=== PATIENT | female | born 1995 | race Caucasian/White ===

== ENCOUNTER 2018-09-06 22:47 | Emergency (ER) | END 2018-09-07 01:02 | disposition home or self-care (01) ==

== ENCOUNTER 2019-02-23 23:44 | Emergency (ER) | payer OTHER ==
[~2019-02-23] VITALS: Ht 160 cm; Wt 49.3 kg
[~2019-02-23 23:44] MED LIST: CITA20TA11 PO
[2019-02-24 00:06] VITALS: BP 114/59; PULSE 75; RESP 18; Ht 160 cm; Wt 49.3 kg
--- NOTE | 2019-02-24 07:01 | ERD ---
ER Documentation Chief Complaint Chief Complaint laceration left hand while cutting avocado with knife x 2 hours ago HPI 23-year-old female, presents to the emergency department, complaining of a laceration in the left hand while cutting an avocado 2 hours prior to arrival. The patient denies distal weakness, numbness or tingling. ROS All systems reviewed and are negative except as per history of present illness. Medications Home Meds Active Scripts Ibuprofen* (Motrin*) 600 Mg Tab, 600 MG PO Q6H PRN for PAIN AND OR ELEVATED TEMP, #12 TAB Prov:RASHAD RYAN MD 02/24/19 Cephalexin* (Keflex*) 500 Mg Capsule, 500 MG PO BID for 5 Days, CAP Prov:RASHAD RYAN MD 02/24/19 Citalopram Hydrobromide* (Celexa*) 20 Mg Tablet, 20 MG PO HS, #30 TAB 0 Refills Prov:SUNGAVELINO 09/07/18 Allergies Allergies: Coded Allergies: No Known Allergy (Unverified , 09/06/18) PMhx/Soc Medical and Surgical Hx: pt denies Surgical Hx Hx Psychiatric Problems: Yes (anxiety,panic attacks) Hx Miscellaneous Medical Probl: Yes (celiac disease, gastroparesis) Hx Alcohol Use: Yes Hx Substance Use: Yes (marijuana) Hx Tobacco Use: Yes Smoking Status: Current some day smoker Physical Exam Vitals Vital Signs Date Temp Pulse Resp B/P (MAP) Pulse Ox O2 O2 Flow FiO2 Time Delivery Rate 02/24/19 97.8 75 18 114/59 98 00:06 (77) Physical Exam Const: No acute distress Head: Atraumatic Eyes: Normal Conjunctiva ENT: Normal External Ears, Nose and Mouth. Neck: Full range of motion. No meningismus. Resp: Clear to auscultation bilaterally Cardio: Regular rate and rhythm, no murmurs Abd: Soft, non tender, non distended. Normal bowel sounds Skin: Left thumb: 2 cm linear laceration at the base of the finger, distal neurovascular exam intact. Full range of motion. No petechiae or rashes Back: No midline or flank tenderness Ext: No cyanosis, or edema Neur: Awake and alert Psych: Normal Mood and Affect Procedures/MDM Vital signs stable, low suspicion for tendon injury, open fracture, foreign body. Neurovascular exam intact. Procedure: Laceration repair The procedure was explained and consent obtained. Anesthesia: none Location: Left thumb Tendon/Joint/Nerves: No injury Foreign body: None detected after copious irrigation and exploration Technique: Tissue adhesive Complexity: No subcutaneous sutures/mucosal rep air/edge excision Post Closure Length: 2 cm The patient tolerated the procedure well without complications. clinical impression and possible complications like infection and a scar where discussed with the patient who agree with management. The patient is stable to be treated outpatient and will be discharged home with a Rx for Tylenol, some side effects of prescribed medications (headache, rash, nausea, vomiting, diarrhea, interactions with other medications) were reviewed. The patient was instructed to follow up with the primary care provider in the next 48h. If symptoms persist, worsen or new symptoms develop, then patient should return to the ED immediately. Instructions explained and given directly by me to the patient with acknowledgment and demonstrated understanding. Disclaimer: Inadvertent spelling and grammatical errors are likely due to EHR/dictation software use and do not reflect on the overall quality of patient care. Also, please note that the electronic time recorded on this note does not necessarily reflect the actual time of the patient encounter. Departure Diagnosis: Primary Impression: Laceration of right thumb Condition: Stable Additional Instructions: Thank you very much for allowing us to participate in your care. Your health and safety is our top priority at [facility]. Call your primary care doctor TOMORROW for an appointment during the next 2-4 da ys and bring all the information and medications prescribed. Have prescriptions filled and follow precisely the directions on the label. If the symptoms get worse and your provider is unavailable, return to the Emergency Department immediately. RASHAD RYAN MD Feb 24, 2019 07:01
[2019-02-24] MEDS ORDERED: CEPH-443 PO (07:10)
[2019-02-24] MEDS ORDERED: IBUP-1542 PO (07:10)
== END 2019-02-24 07:40 | disposition home or self-care (01) ==
LOC: FTE 23:44
DX: S61.412A Laceration without foreign body of left hand, initial encounter (principal); F17.210 Nicotine dependence, cigarettes, uncomplicated; W26.0XXA Contact with knife, initial encounter; Y92.9 Unspecified place or not applicable
CPT/HCPCS: 12001; Z7502